=== PATIENT | male | born 1980 | race Caucasian/White ===

== ENCOUNTER 2024-02-28 23:32 | Inpatient (IN) | payer MEDICAID ==
[~2024-02-28] VITALS: Ht 182.9 cm; Wt 118.9 kg
[2024-02-29] VITALS (7 sets, daily range): BP systolic 106–128; BP diastolic 60–74; PULSE 78–92; RESP 16–28; TEMP 98.2–98.8; O2SAT 91–98
[2024-02-29 00:12] LABS: Basophils # (auto) 0.1 10 ^3/uL (0-0.2); Basophils % (auto) 0.7 % (0.0-2.0); Eosinophils # (auto) 0.2 10 ^3/uL (0-0.8); Eosinophils % (auto) 1.6 % (0.0-7.0); Hematocrit 44.1 % (41.0-53.0); Hemoglobin 14.6 g/dL (13.5-17.5); Lymphocytes % (auto) 19.3 % (10.0-50.0); Mean Corpuscular Hemoglobin 32.5 pg (28.0-32.0); Mean Corpuscular Hgb Conc. 33.1 g/dL (32.0-36.0); Monocytes # (auto) 0.9 10 ^3/uL (0-1.3); Monocytes % (auto) 8.8 % (0.0-12.0); Neutrophils # (auto) 7.3 10 ^3/uL (1.6-8.6); Neutrophils % (auto) 69.6 % (37.0-80.0); Platelet Count (auto) 236 10^3/uL (140-450); Red Cell Distribution Width 13.6 % (11.8-14.3); White Blood Cell 10.5 10^3/uL (4.4-10.8)
[2024-02-29] MEDS: IOHEXOL 350 MG/ML 100ML IJ ONE (00:14)
[2024-02-29 00:17] LABS: Alanine Aminotransferase 39 U/L (7-40); Albumin 4.4 g/dL (3.2-4.8); Alkaline Phosphatase 58 U/L (46-116); Anion Gap 5 (5-15); Aspartate Aminotransferase 27 U/L (13-40); BUN/Creatinine Ratio 13.8 (10.0-20.0); Bilirubin, Total 0.9 mg/dL (0.2-1.0); Blood Urea Nitrogen 15 mg/dL (9-23); Calcium 9.7 mg/dL (8.7-10.4); Carbon Dioxide 27 mmol/L (20-30); Chloride 104 mmol/L (98-107); Glucose 123 mg/dL (74-106); Magnesium 1.9 mg/dL (1.6-2.6); Potassium 3.7 mmol/L (3.5-5.1); Sodium 136 mmol/L (136-145); Total Protein 7.6 g/dL (5.7-8.2)
[2024-02-29] MEDS: ASPirin 325 MG TAB PO ONE (00:22)
[2024-02-29 00:25] LABS: INR 0.99 (0.9-1.15); Partial Thromboplastin Time 28.5 SEC (24.5-34.5); Prothrombin Time 10.5 sec (9.3-11.8)
[2024-02-29] MEDS: ENOXAPARIN SOD 100 MG/1 ML SYRINGE SC ONE (00:28)
[2024-02-29] MEDS: MORPHINE SULFATE 4 MG/ML SYR/VIAL IV ONE (00:30)
[2024-02-29] MEDS: IPRATROPIUM BROM 0.5 MG/2.5ML INH SOL NEB ONE (00:30)
[2024-02-29] MEDS: ALBUTEROL SULF 2.5 MG/0.5ML(0.5%) NEB SOLN NEB ONE (00:30)
[2024-02-29 03:07] LABS: COVID19 ANTIGEN SOFIA FIA NEGATIVE (NEGATIVE)
[2024-02-29 03:58] LABS: Urine Bacteria None Seen /hpf (None Seen)
[2024-02-29 04:17] LABS: Urine Blood Negative /uL (Negative); Urine Clarity Clear (Clear); Urine Color Light-Yellow (Yellow); Urine Mucus FEW (None Seen); Urine Protein, UAD Negative (Negative); Urine Urobilinogen Normal (Negative); Urine WBC <1 /hpf (0 - 3); Urine pH 5.5 (5.0-9.0)
[2024-02-29 04:18] LABS: Amphetamine Screen, Urine Neg (NEGATIVE); Barbiturate Scree,Urine Neg (NEGATIVE); Benzodiazephine Screen, Urine Neg (NEGATIVE); Cannabinoid Screen, Urine Neg (NEGATIVE); Cocaine Screen, Urine Neg (NEGATIVE); Opiate Scree,Urine Pos (NEGATIVE); Phencyclidine Screen, Urine Neg (NEGATIVE); Urine Specific Gravity > 1.050 (1.001-1.035)
[2024-02-29] MEDS ORDERED: ACETAMINOPHEN 325 MG TAB PO PRN (06:15)
[2024-02-29] MEDS ORDERED: MORPHINE SULFATE INJ 2 MG/ml SYRG IV PRN (06:15)
[2024-02-29] MEDS ORDERED: TEMAZEPAM 15 MG CAP PO PRN (06:15)
[2024-02-29] MEDS ORDERED: ONDANSETRON HCL 4 MG/2 ML VIAL IV PRN (06:15)
[2024-02-29] MEDS ORDERED: NITROGLYCERIN 0.4 MG SL TAB SL PRN (06:15)
[2024-02-29 06:32] LABS: Triglycerides 167 mg/dL (< 150)
[2024-02-29 06:33] LABS: LDL Cholesterol 101 mg/dL (< 100)
[2024-02-29 06:34] LABS: Cholesterol 162 mg/dL (< 200); HDL Cholesterol 37 mg/dL (40-59)
[2024-02-29] MEDS: LISINOPRIL 5 MG TAB PO SCH (10:00)
[2024-02-29] MEDS: ASPirin 81 mg TAB PO SCH (11:14)
[2024-02-29] MEDS ORDERED: KRIL300C2 PO (12:31)
[2024-02-29] MEDS ORDERED: MULT-1018 PO (12:31)
[2024-02-29] MEDS ORDERED: COEN400C8 OR (12:31)
[2024-02-29] MEDS: COLCHICINE 0.6 MG CAP PO SCH (13:13)
[2024-02-29] MEDS: KETOROLAC TROMETH 30 MG/ML 1ML VIAL IV ONE (14:28)
[2024-02-29 14:39] LABS: Erythrocyte Sedimentation Rate 22 mm/hr (0-20)
[2024-02-29] MEDS ORDERED: COLC1CAP PO (15:01)
[2024-02-29] MEDS: ATORVASTATIN 20 MG TAB PO SCH (21:55)
[2024-03-01 01:00] VITALS: BP 111/73; PULSE 83; RESP 18; TEMP 98.5; O2SAT 95
[2024-03-01 05:00] VITALS: BP 109/71; PULSE 83; RESP 18; O2SAT 93
[2024-03-01 07:03] LABS: Chloride 103 mmol/L (98-107); Sodium 135 mmol/L (136-145)
[2024-03-01 07:04] LABS: Anion Gap 4 (5-15); Calcium 9.6 mg/dL (8.7-10.4); Carbon Dioxide 28 mmol/L (20-30)
[2024-03-01 07:09] LABS: Blood Urea Nitrogen 10 mg/dL (9-23); Glucose 108 mg/dL (74-106)
[2024-03-01 08:00] VITALS: PULSE 82; RESP 18; O2SAT 96
[2024-03-01 09:00] VITALS: BP 112/70; PULSE 82; RESP 18; TEMP 98.2; O2SAT 96
[2024-03-01] MEDS: PANTOPRAZOLE 40 MG/10 ML VIAL INJ IV SCH (09:08)
[2024-03-01 09:58] VITALS: BP 112/70; PULSE 82; RESP 18; TEMP 36.8; O2SAT 96
== END 2024-03-01 10:35 | disposition home or self-care (01) | DRG 207 ==
LOC: ER 23:32 → TELE 02-29 06:04 → TELE-WESTW 02-29 09:49
PROVIDERS: ADMIT Nurse Practitioner; ATTEND Nurse Practitioner Acute Care
DX: I30.9 Acute pericarditis, unspecified (principal); I11.9 Hypertensive heart disease without heart failure; R16.0 Hepatomegaly, not elsewhere classified; K76.0 Fatty (change of) liver, not elsewhere classified; E66.01 Morbid (severe) obesity due to excess calories; E78.5 Hyperlipidemia, unspecified; R73.03 Prediabetes; Z82.49 Family history of ischemic heart disease and other diseases of the circulatory system; Z68.35 Body mass index [BMI] 35.0-35.9, adult
CPT/HCPCS: 36415; 36600; 71275; 80048; 80053; 80061; 80307; 81001; 82805; 83690; 83735; 83880; 84484; 85025; 85379; 85610; 85652; 85730; 86141; 87426; 93005; 93306; 94640; 96372; 96374; 99291; G0378; J1885; J2470